=== PATIENT | male | born 1970 | race Caucasian/White ===

== ENCOUNTER 2020-03-24 14:21 | Emergency (ER) | payer OTHER ==
[~2020-03-24] VITALS: Ht 172.7 cm; Wt 90.7 kg
[2020-03-24 14:26] VITALS: BP 132/81; Ht 172.7 cm; Wt 90.7 kg
== END 2020-03-24 15:00 | disposition other institution (70) ==
LOC: ED 14:21
DX: Z02.89 Encounter for other administrative examinations (principal)